=== PATIENT | female | born 1960 | race Caucasian/White ===

== ENCOUNTER 2017-02-05 22:57 | Emergency (ER) | payer MEDICAID, OTHER ==
[~2017-02-05] VITALS: Ht 162.6 cm; Wt 58.5 kg
[2017-02-05 23:03] VITALS: Ht 162.6 cm; Wt 58.5 kg
[2017-02-06] MEDS ORDERED: IBUP-1542 PO (03:19)
[2017-02-06] MEDS ORDERED: TRAM50TA2 PO (03:19)
--- NOTE | 2017-02-06 03:49 | ERD ---
ER Documentation Chief Complaint Date/Time DATE: 02/06/17 TIME: 03:45 Chief Complaint bilateral breast pain x 2 weeks HPI 56-year-old female presents in emergency department for complaints of bilateral breast pain that started 2 weeks ago. Patient started to have the pain prior to her menstruation. Patient describes the pain as throbbing pain, 6/10 scale, is worse upon touching the area. Patient denies any deformity, lumps or nipple discharge, redness or swelling. Patient denies any fever or chills. Patient did not take any medications to help with symptoms. ROS All systems reviewed and are negative except as per history of present illness. Medications Home Meds Active Scripts Tramadol HCl (Tramadol HCl) 50 Mg Tablet, 50 MG PO Q6 Y for SEVERE PAIN LEVEL 7- 10, #20 TAB Prov:PRISCILLA IZQUIERDO [employer] 02/06/17 Ibuprofen* (Motrin*) 600 Mg Tab, 600 MG PO Q6H Y for PAIN AND OR ELEVATED TEMP, #30 TAB Prov:PRISCILLA IZQUIERDO [employer] 02/06/17 Allergies Allergies: Coded Allergies: No Known Allergy (Unverified , 02/05/17) PMhx/Soc Medical and Surgical Hx: pt denies Medical Hx, pt denies Surgical Hx History of Surgery: No Anesthesia Reaction: No Hx Neurological Disorder: No Hx Respiratory Disorders: No Hx Cardiac Disorders: No Hx Psychiatric Problems: No Hx Miscellaneous Medical Probl: No Hx Alcohol Use: No Hx Substance Use: No Hx Tobacco Use: No Smoking Status: Never smoker FmHx Family History: No coronary disease, No diabetes, No other Physical Exam Vitals Vital Signs Date Time Temp Pulse Resp B/P Pulse Ox O2 Delivery O2 Flow Rate FiO2 02/05/17 23:03 98.2 58 20 120/73 100 Physical Exam GENERAL: The patient is well developed and appropriate for usual state of health, in no apparent distress. CHEST: Clear to auscultation bilaterally. There are no rales, wheezes or rhonchi. Bilateral breast area noted to be tender on palpation but no lumps, no deformity, no nodules noted, no nipple discharge, no erythema or induration noted. HEART: Regular rate and rhythm. No murmurs, clicks, rubs or gallops. No S3 or S4. ABDOMEN: Soft, nontender and nondistended. Good bowel sounds. No rebound or guarding. No gross peritonitis. No gross organomegaly or masses. No James sign or McBurney point tenderness. BACK: No midline or flank tenderness. EXTREMITIES: Equal pulses bilaterally. There is no peripheral clubbing, cyanosis or edema. No focal swelling or erythema. Full range of motion. Grossly neurovascularly intact. NEURO: Alert and oriented. Cranial nerves 2-12 intact. Motor strength in all 4 extremities with 5/5 strength. Sensation grossly intact. Normal speech and gait. SKIN: There is no apparent rash or petechia. The skin is warm and dry. HEMATOLOGIC AND LYMPHATIC: There is no evidence of excessive bruising or lymphedema. No gross cervical, axillary, or inguinal lymphadenopathy. Procedures/MDM Medical decision making: Patient's bilateral breast pain nonspecific at this time, can be hormonal, no symptoms of any infection at this time. No lumps palpable noted. No deformity noted. No symptoms of any mastitis. Patient was advised to see gynecology specialist for possible mammogram or breast ultrasound for further evaluation. Patient will be given sure show for tramadol and ibuprofen for pain control. Patient is advised to return to emergency department for worsening symptoms. Disposition: Home. Stable. Departure Diagnosis: Primary Impression: Breast pain Condition: Stable Patient Instructions: Breast Self-Exam (BSE) Additional Instructions: see gyne specialist for possible mammogram or breast carolyn PRISCILLA IZQUIERDO NP Feb 06, 2017 03:49
== END 2017-02-06 03:32 | disposition home or self-care (01) ==
LOC: FTE 22:57
DX: N64.4 Mastodynia (principal)
CPT/HCPCS: 99283

== ENCOUNTER 2017-08-28 09:39 | Emergency (ER) | END 2017-08-28 10:54 | disposition home or self-care (01) ==